=== PATIENT | female | born 1990 | race Caucasian/White ===

== ENCOUNTER 2018-08-18 18:16 | Observation (INO) | payer OTHER ==
[~2018-08-18] VITALS: Ht 170.2 cm; Wt 51.9 kg
[~2018-08-18 18:16] MED LIST: ACETAMINOPHEN-1 EAC1 PO; CALCIUM500 M1 PO; CAVAN-FOLATE D1 EACH PO; IRON SUPPLEMENT PO; IRON27 MG PO; LIBRAX CAPSULE1 EACH PO; NORCO 5-325 TA1 EACH PO; VITAMIN D5000 UNIT PO; ZOFRAN ODT4 MG SL
[2018-08-18] MEDS ORDERED: ZOFRAN4 MG PO (18:35)
[2018-08-18] MEDS ORDERED: OMEPRAZOLE20 MG PO (18:35)
[2018-08-18] MEDS ORDERED: TRAZODONE HCL50 MG PO (18:36)
[2018-08-18] MEDS ORDERED: CELEXA40 MG PO (18:36)
[2018-08-18] MEDS ORDERED: MINIPRESS1 MG PO (18:36)
[2018-08-18] MEDS ORDERED: SEROQUEL25 MG PO (18:37)
--- NOTE | 2018-08-18 21:18 | NUR ---
ADMIT THIS 27 YR OLD FEMALE TO CCU PER STRETCHER. IS ALERT AND ORIENTED, COOPERATIVE AN PLEASANT. DENIES WANTING TO HARM SELF AT THIS TIME. STATES HAS BEEN FEELING VERY SAD LATELY AND IS TIRED. HX OF PTSD AND AXIETY. AMB TO BR ON ADMIT TO VOID AND TRAVIS WELL. DENIES NAUSEA AT THIS TIME AND STATES IS HUNGRY, GIVEN BROTH AND TRAVIS WELL.
--- NOTE | 2018-08-18 22:09 | EKG ---
[facility] [address] [facility] [place] [address] Signed Undetermined rhythm Nonspecific T wave abnormality Prolonged QT Abnormal ECG No previous ECGs available Confirmed by AMILCAR DISLA MD ([id number]) on 08/18/2018 10:09:05 PM Electronically Signed By: AMILCAR DISLA MD 08/18/18 2209 PATIENT NAME: ERI LLAMAS Electrocardiogram DATE OF : 86 PHYSICIAN: AMILCAR DISLA MD REPORT #: [id number] REPORT IS CONFIDENTIAL AND NOT TO BE RELEASED WITHOUT AUTHORIZATION
--- NOTE | 2018-08-18 23:20 | NUR ---
FELL ASLEEP AFTER DRINKING MORE BROTH. SISTER WAS HERE TO SEE PT BUT SHE DID NOT AWAKEN HER.
--- NOTE | 2018-08-19 00:13 | NUR ---
AWAKENS EASILY. STATES JUST FEELS TIRED. DENIES NEED TO URINATE.
--- NOTE | 2018-08-19 01:45 | NUR ---
CONT TO SLEEP, NO CHANGES.
--- NOTE | 2018-08-19 03:30 | NUR ---
CONT TO SLEEP. NO CHANGE.
--- NOTE | 2018-08-19 04:17 | NUR ---
AWAKE, USED CALL LIGHT, NEEDING TO VOID. AMB TO BR AND TRAVIS WELL. STATES IS JUST VERY TIRED. GIVEN WARM BLANKET. READY TO GO BACK TO SLEEP.
--- NOTE | 2018-08-19 06:15 | NUR ---
CONT TO SLEEP, NO CHANGE, REMAINS SR.
--- NOTE | 2018-08-19 07:30 | NUR ---
REPORT RECIEVED. PATIENT IS LAYING ON LEFT SIDE ASLEEP. NO DISTRESS NOTED.
--- NOTE | 2018-08-19 08:00 | NUR ---
sleeping on right side. RESP EVEN AND NON-LABORED. REMAINS ON MONITOR. CALL LIGHT WITHIN REACH
--- NOTE | 2018-08-19 08:30 | NUR ---
AWAKE ASSESSMENT DONE. DENIES FEELING SELF HARM. UP TO BR TO VOID. C/O FEELING ALITTLE LIGHT HEADED WITH AMBULATION TO BR. C/O SLIGHT ARELLANO. TALKED WITH PATIENT ABOUT PLAN OF CARE FOR DAY. IS UNDERSTANDING.
--- NOTE | 2018-08-19 08:45 | NUR ---
[facility] PHONED BY THIS RN AND AWARE OF CONSULT.
--- NOTE | 2018-08-19 09:00 | NUR ---
AWAKE IN BED. DENEIS PROBLEMS. IN W/O REQUESTS.
--- NOTE | 2018-08-19 09:25 | NUR ---
SITTING UP IN BED FOR BREAKFAST.
--- NOTE | 2018-08-19 09:40 | NUR ---
C/O NAUSEA. ZOFRAN 4 MG IV GIVEN.
--- NOTE | 2018-08-19 09:45 | NUR ---
SHIKHA JIMENEZ HELD AT THIS TIME. IVF PATENT.
--- NOTE | 2018-08-19 10:00 | NUR ---
POSION CONTROL PHONED IN AND WAS UPDATEDE ON PATIENT. NO FUTHER RECOMMENDATIONS FOR THEM.
--- NOTE | 2018-08-19 12:00 | NUR ---
[facility] HERE TO SEE PATIENT.
--- NOTE | 2018-08-19 12:20 | NUR ---
PT RESTING, CCU STAFF INFORMED ME THAT THEY ARE WAITING FOR [facility] STAFF TO COME AND ASSESS PT. WILL WAIT TO VISIT.
--- NOTE | 2018-08-19 13:30 | NUR ---
RESTFUL, DENIES PROBLEMS. DENIES FEELING OF SELF HARM. [facility] EYE CONTACT. TALKATIVE. ANSWEREING QUESTIONS WITHOUT DELAY
--- NOTE | 2018-08-19 13:52 | NUR ---
TOOK LUNCH FAIR. RAVI NAUSEA.
--- NOTE | 2018-08-19 15:45 | NUR ---
MED REC COMPLETE
--- NOTE | 2018-08-19 16:23 | NUR ---
DISCHARGE INSTRUCTIONS GIVEN WITH PATIENT UNDERSTANDING. AWAITING PATIENTS MOTHER FOR RIDE HOME.
--- NOTE | 2018-08-19 16:36 | NUR ---
DISCHARGED TO HOME VIA W/C ACCOMP BY RN AND MOTHER.
== END 2018-08-19 16:30 | disposition home or self-care (01) ==
LOC: ED 18:16 → CCU 18:18
PROVIDERS: ADMIT Internal Medicine
DX: T43.212A Poisoning by selective serotonin and norepinephrine reuptake inhibitors, intentional self-harm, initial encounter (principal); T43.592A Poisoning by other antipsychotics and neuroleptics, intentional self-harm, initial encounter; T44.6X2A Poisoning by alpha-adrenoreceptor antagonists, intentional self-harm, initial encounter; T43.222A Poisoning by selective serotonin reuptake inhibitors, intentional self-harm, initial encounter; F43.10 Post-traumatic stress disorder, unspecified; F17.200 Nicotine dependence, unspecified, uncomplicated; Z79.899 Other long term (current) drug therapy; Z91.040 Latex allergy status; Z91.5 Personal history of self-harm
CPT/HCPCS: 36415; 51701; 80048; 80053; 80176; 81001; 83735; 84443; 84703; 85025; 93005; 93010; 96366; 96375; 99285-25; 99406; C9113; G0378; G0480; J2405; J2765; J3411; J3480; J7030

== ENCOUNTER 2019-12-14 16:10 | Emergency (ER) | payer OTHER ==
[~2019-12-14] VITALS: Ht 172.7 cm; Wt 54.4 kg
--- OUTSIDE RECORDS SUMMARY | ~2019-12-14 | XMS | Clinical Summary ---
Demographics + + + | Address | NEED ADDRESS | | | [place] [address] | + + + | Home Phone | | + + + | Preferred Language | Unknown | + + + | Marital Status | Single | + + + | Latter-Day Affiliation | Unknown | + + + | Race | Unknown | + + + | Ethnic Group | Unknown | + + + Author + + + | Author | [facility] | | | and [place] | + + + | Organization | [facility] | | | and [...] Team Providers + +------+ + | Care Water Proofer Name | Role | Phone | + [...] +---------+--------+ | [place]ICA[place] | MEDICA | [id number] | | [phone] | | Medica | [...] ADDRESS | | | al/Fam | | 1991 | [phone] | [place] [address] | | | [place] | | | 3 (Home) | | + +--------+ +--------+ + + Advance Directives + + + + + | Type | Date Recorded | Patient | Explanation | | | | Jewel Lathe Operator | | + + + + + | Power of | | | | | Plastic Cnc Machine Operator | | | | + + + + + | Advance | | | | | Directive | | | | + + + + +
--- OUTSIDE RECORDS SUMMARY | ~2019-12-14 | XMS | Encounter Summary ---
Demographics + + + | Address | NEED ADDRESS | | | [place] [address] | + + + | Home Phone | | + + + | Preferred Language | Unknown | + + + | Marital Status | Single | + + + | Adventism Affiliation | Unknown | + + + | Race | Unknown | + + + | Ethnic Group | Unknown | + + + Author + + + | Author | [facility] | | | and [place] | + + + | Organization | [facility] | | | [...] Team Providers + +------+ + | Care Rotating Equipment Engineer Name | Role | Phone | + [...] + + | 02/03/ | Emergency | [facility] | Gricel Godoy, | Sprain of right | | 2019 - | | EM[facility] | MD Romero FULTON | ankle, unspecified | | | | [address] | [place] [address] | ligament, initial | | 02/04/ | | [place], [place] | | encounter (Primary | | 2019 | | [phone] | (Fax) | Dx) | | | [...] be sent through Care Everywhere.Ankle Sprains, Treating (Bahamian)documented in this encounter Medications at Time of [...] Pt left Emergency Department with 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 Follow up with PMD emphasized. Taurus Hurley TBolantTaurus duran RN - 02/03/2019 11:19 PM PDTX-rays done. olanTaurus roe RN - 02/03/2019 11:02 PM PD TPO med administered as ordered. Pending x-ray. Gricel Garvin MD - 02/03/2019 10:55 PM PDTFormatting of this note might be different from t he original. [facility] Patient Name: Tereza Bhandari Patient's (home) Visit [...] HISTORY: Ankle pain. Swelling. COMPARISON: None. FINDINGS: [place] Structures: Normal. No fractures. Joints: Normal. [...] tablet 1 tablet (1 tablet Oral Given 02/03/196) Procedures: Procedure: Splint Application A right walking boot was applied by technicians and trades workers. The patient was neurovascularly intact after the application and there was good anatomic po sition. The patient was given instructions for home care and crutches were provided for ambulatory support Consultations/Reevaluations: Medical Decision Making as of Feb 04 43 Tue Feb 03, 2019 233 Imaging: XR ankle and foot - no [...] boot and given crutches. Discussed case with fire control system installer podiatry Dr. Zarco who agreed with discharge [...] 7 days.Disp-20 tablet, R-0, Print Follow-up Care: [facility] [address] [address] Schedule an appointment as soon [...] effort is made to edit the content, finishing area operator and typing errors may occur. Gricel Godoy MD 02/04/19 0051 olante, Taurus Hicks RN - 02/03/2019 10:41 PM PDTMD evaluating pt. andra Michael RN - 02/03/2019 10:16 PM PDT22:16 ED [...]
--- OUTSIDE RECORDS SUMMARY | ~2019-12-14 | XMS | Encounter Summary ---
Demographics + + + | Address | NEED ADDRESS | | | [place] [address] | + + + | Home Phone | | + + + | Preferred Language | Unknown | + + + | Marital Status | Single | + + + | Rastafari Affiliation | Unknown | + + + | Race | Unknown | + + + | Ethnic Group | Unknown | + + + Author + + + | Author | [facility] | | | and [place] | + + + | Organization | [facility] | | | and [...] Team Providers + +------+ + | Care Cashier Or Checker Stock Clerk Name | Role | Phone | + +------+ + PCP | Unavailable | + +------+ + Encounter Details +--------+ + + + + | Date | Type | Department | Care Team | Description | +--------+ + + + + | 10/25/ | Hospital | [facility] | Kit [place] | Early Onset of | | 2007 - | Encounter | MEDICAL [facility]ENTER LABOR | [address] | Delivery, | | | | AND DEL[address] | [address] | Unspecified as to | | 10/28/ | | RAJESH [place] | [place] [address] | Episode of Care | | 2007 | | [place], [place] | [phone] | | | | | [address] | | | | | | [phone] | | | +--------+ + + + [...] + + documented as of this encounter Plan of Treatment Not on filedocumented as of this encounter Visit Diagnoses + + | Diagnosis | + + | Early onset of delivery, unspecified as to episode of care | + + documented in this encounter"
[~2019-12-14 16:10] MED LIST changes: +CELEXA40 MG PO; +MINIPRESS1 MG PO; +OMEPRAZOLE20 MG PO; +SEROQUEL25 MG PO; +TRAZODONE HCL50 MG PO; +ZOFRAN4 MG PO
== END 2019-12-14 19:12 | disposition left against medical advice (07) ==
LOC: ED 16:10
DX: Z53.21 Procedure and treatment not carried out due to patient leaving prior to being seen by health care provider (principal)

== ENCOUNTER 2020-02-17 15:38 | Emergency (ER) | payer OTHER ==
[~2020-02-17] VITALS: Ht 172.7 cm; Wt 54.4 kg
--- OUTSIDE RECORDS SUMMARY | ~2020-02-17 | XMS | Clinical Summary ---
Demographics + + + | Address | NEED ADDRESS | | | [place] [address] | + + + | Home Phone | | + + + | Preferred Language | Unknown | + + + | Marital Status | Single | + + + | Denominational Affiliation | Unknown | + + + | Race | White | + + + | Ethnic Group | Not or | + + + Author + + + | Author | [facility] | | | and [place] | + + + | Organization | [facility] | | | and [place] | + + + | Address | Unknown | + + + | Phone | Unavailable | + + + Support + + +---------+ + | Name | Relationship | Address | Phone | + + +---------+ + | Mally Bhnadari | ECON | Unknown | | + + +---------+ + Care Team Providers + +------+ + | Care Bakery Machine Mechanic Supervisor Name | Role | Phone | + +------+ + | No, Physician | PCP | Unavailable | + +------+ + Allergies No Known Allergies Medications + + + +---------+------+------+-------+ | Medication | Sig | Dispensed | Refills | Star | End | Statu | | | | | | t | Date | s | | | | | | Date | | | + + + +---------+------+------+-------+ | traZODone | Take 50 mg by mouth | | 0 | | | Activ | | (DESYREL) 50 mg | nightly. | | | | | e | | tablet | | | | | | | + + + +---------+------+------+-------+ | prazosin | Take 2 mg by mouth | | 0 | | | Activ | | (MINIPRESS) 2 MG | nightly. | | | | | e | | capsule | | | | | | | + + + +---------+------+------+-------+ | citalopram | Take 40 mg by mouth | | 0 | | | Activ | | (CELEXA) 40 mg | Daily. | | | | | e | | tablet | | | | | | | + + + +---------+------+------+-------+ Active Problems No known active problems Social History + +-------+ +--------+------+ | Tobacco Use | Types | Packs/Day | Years | Date | | | | | Used | | + +-------+ +--------+------+ | Never Assessed | | | | | + +-------+ +--------+------+ + + + | Sex Assigned at | Date Recorded | | | | + + + | Not on file | | + + + Last Filed Vital Signs + + + + + | Vital Sign | Reading | Time Taken | Comments | + + + + + | Blood Pressure | 102/69 | 02/04/2019 12:00 AM | | | | | PDT | | + + + + + | Pulse | 88 | 02/04/2019 12:00 AM | | | | | PDT | | + + + + + | Temperature | 36.8 C (98.2 F) | 02/03/2019 10:12 PM | | | | | PDT | | + + + + + | Respiratory Rate | 16 | 02/04/2019 12:00 AM | | | | | PDT | | + + + + + | Oxygen Saturation | 97% | 02/04/2019 12:00 AM | | | | | PDT | | + + + + + | Inhaled Oxygen | - | - | | | Concentration | | | | + + + + + | Weight | 54.4 kg (120 lb) | 02/03/2019 10:12 PM | | | | | PDT | | + + + + + | Height | 170.2 cm (5' 7") | 02/03/2019 10:12 PM | | | | | PDT | | + + + + + | Body Mass Index | 18.79 | 02/03/2019 10:12 PM | | | | | PDT | | + + + + + Plan of Treatment + + + + + | Health Maintenance | Due Date | Last | Comments | | | | Done | | + + + + + | Hepatitis C | | | | | Screening | 9 | | | + + + + + | Cervical Cancer | | | | | Screening (Pap) | 9 | | | + + + + + | Vaccine: Influenza | | 03/19/20 | | | (#1) | 0 | 12 | | + + + + + | Vaccine: | | 06/26/19 | | | Dtap/Tdap/Td (2 - | 9 | 19 | | | Td) | | | | + + + + + Results Not on filefrom Last 3 Months Insurance + +--------+ +--------+ +---------+--------+ | Payer | Benefi | Subscriber | Effect | Phone | Address | Type | | | t Plan | ID | karen | | | | | | / | | Dates | | | | | | Group | | | | | | + +--------+ +--------+ +---------+--------+ | [place] | MEDICA | [id number] | | [phone] | | [place] | | | [place] | | 019-Pr | 2 | | id | | | PLUS | | esent | | | | + +--------+ +--------+ +---------+--------+ + +--------+ +--------+ + + | Guarantor Name | Accoun | Relation to | Date | Phone | Billing Address | | | t Type | Patient | of | | | | | | | | | | + +--------+ +--------+ + + | Tereza Bhandari | Person | Self [birth year] | NEED ADDRESS | | | al/Fam | | 1990 | | [place] [address] | | | [place] | | | 3 (Home) | | + +--------+ +--------+ + + | Tereza Bhandari | Person | Self [birth year] | NEED ADDRESS | | | al/Fam | | 1990 | [address] | [place] [address] | | | [place] | | | 3 (Home) | | + +--------+ +--------+ + + Advance Directives + + + + + | Type | Date Recorded | Patient | Explanation | | | | Paramedic | | + + + + + | Power of | | | | | Instrumental Teacher | | | | + + + + + | Advance | | | | | Directive | | | | + + + + +
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
--- OUTSIDE RECORDS SUMMARY | ~2020-02-17 | XMS | Encounter Summary ---
Demographics + + + | Address | NEED ADDRESS | | | [place] [address] | + + + | Home Phone | | + + + | Preferred Language | Unknown | + + + | Marital Status | Single | + + + | Jew Affiliation | Unknown | + + + | Race | White | + + + | Ethnic Group | Not or | + + + Author + + + | Author | [facility] | | | and [place] | + + + | Organization | [facility] | | | [...] Team Providers + +------+ + | Care Business Development Director Name | Role | Phone | + +------+ + PCP | Unavailable | + +------+ + Encounter Details +--------+ + + + + | Date | Type | Department | Care Team | Description | +--------+ + + + + | 10/25/ | Hospital | [facility] | Kit Glasgow | Early Onset of | | 2007 - | Encounter | [facility] | MD Javad [address] | Delivery, | | | | AND DELIVERY [address] | [address] | Unspecified as to | | 10/28/ | | [address] | [place] [address] | Episode of Care | | 2007 | | [place], [place] | [phone] | | | | | [address] | | | | | | [phone] | | | +--------+ + + + [...]
[2020-02-17] MEDS ORDERED: BACTRIM DS TAB1 EACH PO (16:06)
[2020-02-17] MEDS ORDERED: KEFLEX500 MG PO (16:06)
== END 2020-02-17 16:18 | disposition home or self-care (01) ==
LOC: ED 15:38
DX: L03.115 Cellulitis of right lower limb (principal); F17.200 Nicotine dependence, unspecified, uncomplicated; Z91.018 Allergy to other foods; Z79.899 Other long term (current) drug therapy
CPT/HCPCS: 99283

== ENCOUNTER 2020-06-22 03:40 | Emergency (ER) | payer OTHER ==
[~2020-06-22] VITALS: Ht 172.7 cm; Wt 54.4 kg
[~2020-06-22 03:40] MED LIST changes: +BACTRIM DS TAB1 EACH PO; +KEFLEX500 MG PO
== END 2020-06-22 04:13 | disposition home or self-care (01) ==
LOC: ED 03:40
DX: K08.89 Other specified disorders of teeth and supporting structures (principal); F17.200 Nicotine dependence, unspecified, uncomplicated; Z79.899 Other long term (current) drug therapy
CPT/HCPCS: 99282

== ENCOUNTER 2021-01-29 04:57 | Emergency (ER) | payer OTHER ==
[~2021-01-29] VITALS: Ht 172.7 cm; Wt 54.4 kg
--- OUTSIDE RECORDS SUMMARY | 2021-01-29 04:58 | XMS ---
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 12/14/2019 16:10 - Other Details: PATIENT LWBS. CRITERIA MET - [facility] - 2 Visits in 30 Days [facility] Case Management 02/18/2020-[facility] PHONE: [phone] Jeffrey has no Care Guidelines for this patient. Care History Medical/Surgical 02/18/2020 [facility] - PATIENT IS [facility] ELIGIBLE, \T\middot;\T\nbsp; PLEASE REFER PATIENT TO [facility] FOR NON EMERGENT MEDICAL NEEDS. \T\middot;\T\nbsp; [facility] CAN SEE PATIENTS SAME DAY FOR APTS IF PATIENT CALLS FIRST THING IN THE MORNING. [facility] MO[facility] TOTAL 5 NOTE: Visits indicate total known visits. ED/UCC VISIT TRACKING (12 MO.) 01/29/2021 04:57 [facility] [place] TYPE: Emergency COMPLAINT: - DENTAL PAIN 01/26/2021 01:47 [facility] [place] TYPE: Emergency COMPLAINT: - DENTAL PROBLEM 01/17/2021 00:48 [facility] [place] TYPE: Emergency DIAGNOSES: - Nausea - fatigue, nausea, pain - Nausea with vomiting, unspecified 06/22/2020 03:40 [facility] [place] TYPE: Emergency COMPLAINT: - TOOTH PAIN DIAGNOSES: - Other terminal worker (current) drug therapy - Nicotine dependence, unspecified, uncomplicated - Other specified disorders of teeth and supporting structures 02/17/2020 15:39 [facility] [place] TYPE: Emergency COMPLAINT: - R ANKLE PAIN NON INJ DIAGNOSES: - Nicotine dependence, unspecified, uncomplicated - Cellulitis of right lower limb - Other terminal worker (current) drug therapy - Pain in right ankle and joints of right foot - Allergy to other foods INPATIENT VISIT TRACKING (12 MO.) No inpatient visits to display in this time frame [email or web address]
[2021-01-29] MEDS ORDERED: CLINDAMYCIN HC300 MG PO (05:18)
== END 2021-01-29 05:33 | disposition home or self-care (01) ==
LOC: ED 04:57
DX: K08.89 Other specified disorders of teeth and supporting structures (principal); F17.200 Nicotine dependence, unspecified, uncomplicated
CPT/HCPCS: 99282

== ENCOUNTER 2021-06-16 19:43 | Emergency (ER) | payer OTHER ==
[~2021-06-16] VITALS: Ht 172.7 cm; Wt 54.4 kg
[~2021-06-16 19:43] MED LIST changes: +CLINDAMYCIN HC300 MG PO
[2021-06-17] MEDS ORDERED: K-TAB ER20 MEQ PO (01:11)
[2021-06-17] MEDS ORDERED: ONDANSETRON ODT8 MG PO (01:14)
--- NOTE | 2021-06-18 16:30 | EKG ---
[facility] [address] [facility] [place] [address] Signed Sinus tachycardia Otherwise normal ECG When compared with ECG of 18-AUG-2018 18:23, Previous ECG has undetermined rhythm, needs review Nonspecific T wave abnormality no longer evident in Inferior leads Nonspecific T wave abnormality no longer evident in Anterior leads QT has shortened Confirmed by JACKIE HANLEY DO ([id number]) on 06/18/2021 4:30:19 PM Electronically Signed By: JACKIE HANLEY DO 06/18/21 1630 PATIENT NAME: ERI LLAMAS Electrocardiogram DATE OF : 86 PHYSICIAN: JACKIE HANLEY DO REPORT #: [id number] REPORT IS CONFIDENTIAL AND NOT TO BE RELEASED WITHOUT AUTHORIZATION
== END 2021-06-17 01:41 | disposition home or self-care (01) ==
LOC: ED 19:43
DX: E87.6 Hypokalemia (principal); R51.9 Headache, unspecified; F15.90 Other stimulant use, unspecified, uncomplicated; Z20.822 Contact with and (suspected) exposure to COVID-19; F17.200 Nicotine dependence, unspecified, uncomplicated
CPT/HCPCS: 80053; 81001; 83690; 84703; 85025; 93005; 93010; 96374; 96375; 99285-25; A9270; J1885; J2405; J2765; J7030; U0003

== ENCOUNTER 2021-07-21 10:18 | Emergency (ER) | payer OTHER ==
[~2021-07-21] VITALS: Ht 172.7 cm; Wt 49.7 kg
[~2021-07-21 10:18] MED LIST changes: +K-TAB ER20 MEQ PO; +ONDANSETRON ODT8 MG PO
== END 2021-07-21 11:26 | disposition home or self-care (01) ==
LOC: ED 10:18
DX: S60.051A Contusion of right little finger without damage to nail, initial encounter (principal); W18.30XA Fall on same level, unspecified, initial encounter; F17.200 Nicotine dependence, unspecified, uncomplicated
CPT/HCPCS: 73140; 99283-25

== ENCOUNTER 2021-07-22 15:32 | Emergency (ER) | payer OTHER ==
[~2021-07-22] VITALS: Ht 172.7 cm; Wt 49.4 kg
--- OUTSIDE RECORDS SUMMARY | 2021-07-22 15:40 | XMS ---
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 - 2 Visits in 30 Days [facility] Case Management 02/18/2020-[facility] PHONE: [phone] Jeffrey has no Care Guidelines for this patient. Care History Medical/Surgical 02/18/2020 [facility] - PATIENT IS [facility] ELIGIBLE, \T\middot;\T\nbsp; PLEASE REFER PATIENT TO [facility] FOR NON EMERGENT MEDICAL NEEDS. \T\middot;\T\nbsp; [facility] CAN SEE PATIENTS SAME DAY FOR APTS IF PATIENT CALLS FIRST THING IN THE MORNING. [facility] TOTAL 6 NOTE: Visits indicate total known visits. ED/UCC VISIT TRACKING (12 MO.) 07/22/2021 15:33 [facility] [place] TYPE: Emergency COMPLAINT: - FACE INJURY 07/21/2021 10:19 [facility] [place] TYPE: Emergency COMPLAINT: - R HAND PINKY INJURY 06/16/2021 19:[address] [facility] [place] TYPE: Emergency COMPLAINT: - FLANK PAIN DIAGNOSES: - Other stimulant abuse, uncomplicated - Other stimulant use, unspecified, uncomplicated - Unspecified abdominal pain - Hypokalemia - Nicotine dependence, unspecified, uncomplicated - Headache, unspecified 01/29/2021 04:57 [facility] TYPE: Emergency COMPLAINT: - DENTAL PAIN DIAGNOSES: - Nicotine dependence, unspecified, uncomplicated - Other specified disorders of teeth and supporting structures 01/26/2021 01:[address] [facility] [address] [facility] [place] TYPE: Emergency COMPLAINT: - DENTAL PROBLEM 01/17/2021 00:48 [facility] [place] TYPE: Emergency DIAGNOSES: - Nausea - fatigue, nausea, pain - Nausea with vomiting, unspecified INPATIENT VISIT TRACKING (12 MO.) No inpatient visits to display in this time frame [email or web address]
== END 2021-07-22 17:56 | disposition home or self-care (01) ==
LOC: ED 15:32
DX: S01.112A Laceration without foreign body of left eyelid and periocular area, initial encounter (principal); F17.200 Nicotine dependence, unspecified, uncomplicated; Y09 Assault by unspecified means
CPT/HCPCS: 12011; 99283-25

== ENCOUNTER 2021-10-27 21:36 | Emergency (ER) | payer OTHER ==
[~2021-10-27] VITALS: Ht 172.7 cm; Wt 50.0 kg
== END 2021-10-28 02:14 | disposition home or self-care (01) ==
LOC: ED 21:36
DX: U07.1 COVID-19 (principal); F17.200 Nicotine dependence, unspecified, uncomplicated
CPT/HCPCS: 36415; 70450; 80053; 81001; 83605; 84703; 85025; 87502; 96374; 96375; 99284-25; C9803; J1200; J1885; J2765; J7030; U0003

== ENCOUNTER 2021-10-28 14:08 | Emergency (ER) | payer OTHER ==
[~2021-10-28] VITALS: Ht 172.7 cm; Wt 50.0 kg
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
== END 2021-10-28 18:12 | disposition home or self-care (01) ==
LOC: ED 14:08
DX: U07.1 COVID-19 (principal); F17.200 Nicotine dependence, unspecified, uncomplicated
CPT/HCPCS: 36415; 62270; 71045; 80053; 82945; 83605; 84157; 85025; 89051; 99284-25; A9270; J1885; J7030

== ENCOUNTER 2021-12-02 04:44 | Emergency (ER) | payer OTHER ==
[~2021-12-02] VITALS: Ht 172.7 cm; Wt 50.0 kg
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
== END 2021-12-02 05:55 | disposition home or self-care (01) ==
LOC: ED 04:44
DX: H11.32 Conjunctival hemorrhage, left eye (principal); F17.200 Nicotine dependence, unspecified, uncomplicated

== ENCOUNTER 2023-01-25 13:13 | Emergency (ER) | payer OTHER ==
[~2023-01-25] VITALS: Ht 172.7 cm; Wt 54.5 kg
--- OUTSIDE RECORDS SUMMARY | ~2023-01-25 | XMS | Continuity of Care Document ---
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 temperature_standar | | | | | d | | | + + + +---------+ | 2021-07-22 00:00 | weight_metric | 49.44 | kg | + + + +---------+ | 2021-07-22 00:00 | weight_metric | 54.43 | kg | + + + +---------+ | 2021-07-22 00:00 | weight_standard | 109 | lb | + + + +---------+ | 2021-07-22 00:00 | weight_standard | 120 | lb | + + + +---------+ | 2021-10-27 00:00 | BMI | 16.8 | kg/m2 | + + + +---------+ | 2021-10-27 00:00 | height_metric | 172.72 | cm | + + + +---------+ | 2021-10-27 00:00 | height_standard | 68 | in | + + + +---------+ | 2021-10-27 00:00 | weight_metric | 50 | kg | + + + +---------+ | 2021-10-27 00:00 | weight_standard | 110.23 | lb | + + + +---------+ | 2021-10-28 00:00 | BMI | 16.8 | kg/m2 | + + + +---------+ | 2021-10-28 00:00 | BP_diastolic | 62 | mmHg | + + + +---------+ | 2021-10-28 00:00 | BP_diastolic | 64 | mmHg | + + + +---------+ | 2021-10-28 00:00 | BP_systolic | 100 | mmHg | + + + +---------+ | 2021-10-28 00:00 | BP_systolic | 106 | mmHg | + + + +---------+ | 2021-10-28 00:00 | heart_rate | 78 | /min | + + + +---------+ | 2021-10-28 00:00 | heart_rate | 95 | /min | + + + +---------+ | 2021-10-28 00:00 | height_metric | 172.72 | cm | + + + +---------+ | 2021-10-28 00:00 | height_standard | 68 | in | + + + +---------+ | 2021-10-28 00:00 | o2_saturation | 100 | % | + + + +---------+ | 2021-10-28 00:00 | o2_saturation | 95 | % | + + + +---------+ | 2021-10-28 00:00 | respiration_rate | 15 | /min | + + + +---------+ | 2021-10-28 00:00 | respiration_rate | 16 | /min | + + + +---------+ | 2021-10-28 00:00 | temperature_metric | 37.33 | C | | | | | | + + + +---------+ | 2021-10-28 00:00 | temperature_metric | 39.22 | C | | | | | | + + + +---------+ | 2021-10-28 00:00 | | 102.6 | F | | | temperature_standar | | | | | d | | | + + + +---------+ | 2021-10-28 00:00 | | 99.2 | F | | | temperature_standar | | | | | d | | | + + + +---------+ | 2021-10-28 00:00 | weight_metric | 49.98 | kg | + + + +---------+ | 2021-10-28 00:00 | weight_standard | 110.19 | lb | + + + +---------+ | 2021-12-02 00:00 | BMI | 16.8 | kg/m2 | + + + +---------+ | 2021-12-02 00:00 | BP_diastolic | 87 | mmHg | + + + +---------+ | 2021-12-02 00:00 | BP_systolic | 108 | mmHg | + + + +---------+ | 2021-12-02 00:00 | heart_rate | 81 | /min | + + + +---------+ | 2021-12-02 00:00 | height_metric | 172.72 | cm | + + + +---------+ | 2021-12-02 00:00 | height_standard | 68 | in | + + + +---------+ | 2021-12-02 00:00 | o2_saturation | 100 | % | + + + +---------+ | 2021-12-02 00:00 | respiration_rate | 16 | /min | + + + +---------+ | 2021-12-02 00:00 | temperature_metric | 37.17 | C | | | | | | + + + +---------+ | 2021-12-02 00:00 | | 98.9 | F | | | temperature_standar | | | | | d | | | + + + +---------+ | 2021-12-02 00:00 | weight_metric | 49.98 | kg | + + + +---------+ | 2021-12-02 00:00 | weight_standard | 110.19 | lb | + + + +---------+ | 2022-06-14 00:00 | BMI | 16.8 | kg/m2 | + + + +---------+ | 2022-06-14 00:00 | BP_diastolic | 81 | mmHg | + + + +---------+ | 2022-06-14 00:00 | BP_systolic | 118 | mmHg | + + + +---------+ | 2022-06-14 00:00 | heart_rate | 93 | /min | + + + +---------+ | 2022-06-14 00:00 | height_metric | 172.72 | cm | + + + +---------+ | 2022-06-14 00:00 | height_standard | 68 | in | + + + +---------+ | 2022-06-14 00:00 | o2_saturation | 100 | % | + + + +---------+ | 2022-06-14 00:00 | respiration_rate | 18 | /min | + + + +---------+ | 2022-06-14 00:00 | temperature_metric | 36.39 | C | | | | | | + + + +---------+ | 2022-06-14 00:00 | | 97.5 | F | | | temperature_standar | | | | | d | | | + + + +---------+ | 2022-06-14 00:00 | weight_metric | 49.98 | kg | + + + +---------+ | 2022-06-14 00:00 | weight_standard | 110.19 | lb | + + + +---------+ | 2022-08-18 00:00 | BMI | 18.3 | kg/m2 | + + + +---------+ | 2022-08-18 00:00 | BP_diastolic | 87 | mmHg | + + + +---------+ | 2022-08-18 00:00 | BP_systolic | 115 | mmHg | + + + +---------+ | 2022-08-18 00:00 | heart_rate | 88 | /min | + + + +---------+ | 2022-08-18 00:00 | height_metric | 172.72 | cm | + + + +---------+ | 2022-08-18 00:00 | height_standard | 68 | in | + + + +---------+ | 2022-08-18 00:00 | o2_saturation | 100 | % | + + + +---------+ | 2022-08-18 00:00 | respiration_rate | 18 | /min | + + + +---------+ | 2022-08-18 00:00 | temperature_metric | 36.5 | C | | | | | | + + + +---------+ | 2022-08-18 00:00 | | 97.7 | F | | | temperature_standar | | | | | d | | | + + + +---------+ | 2022-08-18 00:00 | weight_metric | 54.52 | kg | + + + +---------+ | 2022-08-18 00:00 | weight_standard | 120.19 | lb | + + + +---------+ | 2022-08-18 00:00 | weight_standard | 120.2 | lb | + + + +---------+"
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
[~2023-01-25 13:13] MED LIST changes: +PREDNISONE20 MG PO
[2023-01-25 14:02] LABS: BASOPHILS 0.3 % (0-2); EOSINOPHILS 0.1 % (0-6); HEMATOCRIT 42.6 % (35.0-50.0); LYMPHOCYTES 4.7 % (24-44); MCH 29.7 (27-36); MCHC 32.8 g/dl (30-36); MCV 90.4 fl (81-99); MONOCYTES 8.2 % (0-12); NEUTROPHILS 86.7 % (39-80); PLATELET COUNT 153 K/uL (140-440); RBC 4.71 M/ul (4.3-5.7); RDW 14.2 (10.5-15.0)
[2023-01-25 14:11] LABS: BUN/CREATININE RATIO 6.81 (6.0-28.6); CALCIUM 8.9 mg/dL (8.5-10.1); CREATININE, SERUM 0.88 mg/dL (0.55-1.02)
[2023-01-25 14:45] LABS: INFLUENZA B NAA NEGATIVE (NEGATIVE); RESPIRATORY SYNCYTIAL VIR NAA NEGATIVE (NEGATIVE)
[2023-01-25 15:59] VITALS: BP 130/88
== END 2023-01-25 16:00 | disposition home or self-care (01) ==
LOC: ED 13:13
PROVIDERS: Student in an Organized Health Care Education/Training Program
DX: B34.9 Viral infection, unspecified (principal); F17.200 Nicotine dependence, unspecified, uncomplicated; Z20.822 Contact with and (suspected) exposure to COVID-19; Z91.040 Latex allergy status
CPT/HCPCS: 36415; 80048; 84703; 85025; 87502; 96374; 99284-25; C9803; J1885; J7030; U0002

== ENCOUNTER 2024-01-16 08:32 | Emergency (ER) | payer OTHER ==
[~2024-01-16] VITALS: Ht 172.7 cm; Wt 55.8 kg
[~2024-01-16 08:32] MED LIST changes: +IMITREX25 MG PO
[2024-01-16] MEDS ORDERED: PSEUDOEPHEDRINE HCL 30 MG TAB PO ONE (09:00)
[2024-01-16] MEDS ORDERED: ONDANSETRON 4 MG TAB ODT SL ONE (09:00)
[2024-01-16] MEDS ORDERED: KETOROLAC TROMETHAMINE 30 MG/ML VIAL IM ONE (09:00)
[2024-01-16 09:41] LABS: INFLUENZA B NAA NEGATIVE (NEGATIVE); RESPIRATORY SYNCYTIAL VIR NAA NEGATIVE (NEGATIVE)
[2024-01-16] MEDS ORDERED: ONDANSETRON ODT4 MG PO (09:51)
[2024-01-16] MEDS ORDERED: NASAL DECONGEST30 MG PO (09:51)
[2024-01-16 09:56] VITALS: BP 127/97
[2024-01-17] MEDS ORDERED: ONDANSETRON ODT8 MG PO (02:59)
[2024-01-17] MEDS ORDERED: CEFDINIR300 MG PO (02:59)
[2024-01-17] MEDS ORDERED: HYDROCODON-ACE1 EA10 PO (02:59)
== END 2024-01-16 09:56 | disposition home or self-care (01) ==
LOC: ED 08:32
PROVIDERS: Emergency Medicine
DX: J06.9 Acute upper respiratory infection, unspecified (principal); F17.200 Nicotine dependence, unspecified, uncomplicated; Z91.040 Latex allergy status
CPT/HCPCS: 87502; 96372; 99284-25; A9270; J1885; U0002

== ENCOUNTER 2024-01-17 00:46 | Emergency (ER) | payer OTHER ==
[~2024-01-17] VITALS: Ht 172.7 cm; Wt 57.0 kg
[~2024-01-17 00:46] MED LIST changes: +NASAL DECONGEST30 MG PO; +ONDANSETRON ODT4 MG PO
[2024-01-17 01:07] LABS: BILIRUBIN, URINE POSITIVE (negative); BLOOD/HGB, URINE LARGE (Negative); KETONE, URINE TRACE (Negative); LEUK ESTERASE, URINE NEGATIVE (negative); NITRITE, URINE POSITIVE (negative)
[2024-01-17 01:12] LABS: EPITHELIAL CELLS, URINE SQUAMOUS 4+ /lpf (0-1+)
[2024-01-17 01:13] LABS: BACTERIA, URINE 3+ /hpf (negative); CASTS, URINE NONE SEEN \\lpf; COLLECTION TYPE, URINE CLEAN CATCH; CRYSTALS, URINE NONE SEEN (0-1+); REFLEX CULTURE, URINE No (No)
[2024-01-17] MEDS ORDERED: MORPHINE SULFATE 4 MG/ML VIAL IV ONE (01:15)
[2024-01-17] MEDS ORDERED: ondansetron HCL 4 MG/2 ML VIAL IV ONE (01:15)
[2024-01-17] MEDS ORDERED: SODIUM CHLORIDE 0.9% 1,000 ML IV ONE (01:15)
[2024-01-17 01:19] LABS: BASOPHILS 0.2 % (0-2); EOSINOPHILS 0.2 % (0-6); LYMPHOCYTES 11.7 % (24-44); MCH 30.2 (27-36); MCHC 33.4 g/dl (30-36); MCV 90.2 fl (81-99); MONOCYTES 11.7 % (0-12); NEUTROPHILS 76.2 % (39-80); PLATELET COUNT 188 K/uL (140-440); RBC 4.32 M/ul (4.3-5.7); RDW 14.1 (10.5-15.0)
[2024-01-17] MEDS ORDERED: CEFTRIAXONE/SODIUM CHLORIDE 2 GM/100 ML PIGGYBACK IV ONE (01:30)
[2024-01-17 01:33] LABS: ALBUMIN 3.3 g/dL (3.4-5.0); ALBUMIN/GLOBULIN RATIO 0.89 (1.1-2.4); ANION GAP 7.5 (7-21); BILIRUBIN, TOTAL 0.4 ng/dL (0.2-1.0); BUN/CREATININE RATIO 11.11 (6.0-28.6); CALCIUM 8.8 mg/dL (8.5-10.1); CREATININE, SERUM 0.99 mg/dL (0.55-1.02); POTASSIUM 3.5 mmol/L (3.5-5.1)
[2024-01-17] MEDS ORDERED: HYDROmorphone HCL 1 MG/ML SYR IV PRN (02:30)
[2024-01-17] MEDS ORDERED: ONDANSETRON ODT8 MG PO (02:59)
[2024-01-17] MEDS ORDERED: HYDROCODON-ACE1 EA10 PO (02:59)
[2024-01-17] MEDS ORDERED: CEFDINIR300 MG PO (02:59)
[2024-01-17] MEDS ORDERED: HYDROCODONE BIT/ACETAMINOPHEN 5/325 MG 1 TAB HOME.PACK PO ONE (03:15)
[2024-01-17] MEDS ORDERED: CEFDINIR 300 MG HOME.PACK PO ONE (03:15)
[2024-01-17] MEDS ORDERED: ONDANSETRON 4 MG HOME.PACK SL ONE (03:15)
[2024-01-17] MEDS ORDERED: NALOXONE 4 MG NASAL SPRAY #2 HOME.PACK NAS ONE (03:15)
[2024-01-17 03:28] VITALS: BP 126/83
== END 2024-01-17 03:31 | disposition home or self-care (01) ==
LOC: ED 00:46
PROVIDERS: Family Medicine
DX: N12 Tubulo-interstitial nephritis, not specified as acute or chronic (principal); F17.200 Nicotine dependence, unspecified, uncomplicated; Z91.040 Latex allergy status; Z79.899 Other long term (current) drug therapy
CPT/HCPCS: 36415; 74177; 80053; 81001; 83690; 84703; 85025; 99284-25; A9270; J0696; J1170; J2270; J2405; J3490; J7030; Q9967

== ENCOUNTER 2024-04-22 20:44 | Emergency (ER) | payer OTHER ==
[~2024-04-22] VITALS: Ht 172.7 cm; Wt 56.2 kg
[~2024-04-22 20:44] MED LIST changes: +CEFDINIR300 MG PO; +HYDROCODON-ACE1 EA10 PO
[2024-04-22] MEDS ORDERED: IBUPROFEN 800 MG TAB PO ONE (21:00)
[2024-04-22] MEDS ORDERED: IBU600 MG PO (21:43)
[2024-04-22 21:50] VITALS: BP 120/91
== END 2024-04-22 21:52 | disposition home or self-care (01) ==
LOC: ED 20:44
DX: S93.401A Sprain of unspecified ligament of right ankle, initial encounter (principal); I25.2 Old myocardial infarction; F17.200 Nicotine dependence, unspecified, uncomplicated; Z91.040 Latex allergy status; X58.XXXA Exposure to other specified factors, initial encounter
CPT/HCPCS: 73610; A9270

== ENCOUNTER 2024-05-05 18:22 | Emergency (ER) | payer OTHER ==
[~2024-05-05] VITALS: Ht 172.7 cm; Wt 57.8 kg
[~2024-05-05 18:22] MED LIST changes: +IBU600 MG PO
[2024-05-05] MEDS ORDERED: ACETAMINOPHEN 500 MG TAB PO ONE (18:45)
[2024-05-05] MEDS ORDERED: SODIUM CHLORIDE 0.9% 2,000 ML IV ONE (19:00)
[2024-05-05 19:01] LABS: BASOPHILS 0.1 % (0-2); BILIRUBIN, URINE NEGATIVE (negative); BLOOD/HGB, URINE LARGE (Negative); EOSINOPHILS 0.1 % (0-6); HEMOGLOBIN 13.7 g/dL (12.0-18.0); KETONE, URINE NEGATIVE (Negative); LEUK ESTERASE, URINE SMALL (negative); LYMPHOCYTES 5.6 % (24-44); MCH 30.1 (27-36); MCHC 33.3 g/dl (30-36); MCV 90.3 fl (81-99); MONOCYTES 8.7 % (0-12); NEUTROPHILS 85.5 % (39-80); NITRITE, URINE POSITIVE (negative); PLATELET COUNT 278 K/uL (140-440); RBC 4.54 M/ul (4.3-5.7); RDW 14.5 (10.5-15.0)
[2024-05-05 19:07] LABS: BACTERIA, URINE 4+ /hpf (negative); EPITHELIAL CELLS, URINE SQUAMOUS 2+ /lpf (0-1+); RED BLOOD CELLS, URINE >50 /hpf (0-5); REFLEX CULTURE, URINE Yes (No); WHITE BLOOD CELLS, URINE >50 /HPF (0-5)
[2024-05-05] MEDS ORDERED: ondansetron HCL 4 MG/2 ML VIAL IV ONE (19:15)
[2024-05-05 19:34] LABS: ALBUMIN 3.5 g/dL (3.4-5.0); ALBUMIN/GLOBULIN RATIO 0.78 (1.1-2.4); ANION GAP 12.2 (7-21); BILIRUBIN, TOTAL 0.4 ng/dL (0.2-1.0); BUN/CREATININE RATIO 12.34 (6.0-28.6); CALCIUM 9.3 mg/dL (8.5-10.1); CREATININE, SERUM 0.81 mg/dL (0.55-1.02); POTASSIUM 3.2 mmol/L (3.5-5.1)
[2024-05-05 19:46] LABS: INFLUENZA B NAA NEGATIVE (NEGATIVE); RESPIRATORY SYNCYTIAL VIR NAA NEGATIVE (NEGATIVE)
[2024-05-05] MEDS ORDERED: CEFDINIR 300 MG HOME.PACK PO ONE (20:00)
[2024-05-05] MEDS ORDERED: HYDROCODONE BIT/ACETAMINOPHEN 5/325 MG 1 TAB HOME.PACK PO ONE (20:00)
[2024-05-05] MEDS ORDERED: ONDANSETRON 4 MG HOME.PACK SL ONE (20:00)
[2024-05-05] MEDS ORDERED: CEFTRIAXONE/SODIUM CHLORIDE 2 GM/100 ML PIGGYBACK IV ONE (20:00)
[2024-05-05 21:10] VITALS: BP 112/72
--- NOTE | 2024-05-07 13:58 | EKG ---
[facility] [address] [place] [address] Signed Normal sinus rhythm Normal ECG When compared with ECG of 14-JUN-2022 13:09, No significant change was found Confirmed by Maria L Velazquez MD () on 05/07/2024 1:58:04 PM Electronically Signed By: MARIA L VELAZQUEZ MD 05/07/24 1358 PATIENT NAME: ERI LLAMAS Electrocardiogram DATE OF : 86 PHYSICIAN: MARIA L VELAZQUEZ MD REPORT #: [id number] REPORT IS CONFIDENTIAL AND NOT TO BE RELEASED WITHOUT AUTHORIZATION
== END 2024-05-05 21:10 | disposition home or self-care (01) ==
LOC: ED 18:22
PROVIDERS: Emergency Medicine
DX: N12 Tubulo-interstitial nephritis, not specified as acute or chronic (principal); I25.2 Old myocardial infarction; F17.200 Nicotine dependence, unspecified, uncomplicated; Z91.040 Latex allergy status
CPT/HCPCS: 36415; 71045; 80053; 81001; 83605; 85025; 87040; 87088; 87186; 87502; 93005; 93010; 96365; 96375; 99284-25; A9270; J0696; J2405; J7030; U0002

== ENCOUNTER 2024-06-13 22:19 | Emergency (ER) | payer OTHER ==
[~2024-06-13] VITALS: Ht 172.7 cm; Wt 57.2 kg
[2024-06-13 23:45] LABS: BILIRUBIN, URINE NEGATIVE (negative); BLOOD/HGB, URINE NEGATIVE (Negative); KETONE, URINE NEGATIVE (Negative); LEUK ESTERASE, URINE MODERATE (negative); NITRITE, URINE POSITIVE (negative); PH, URINE 7.5 (5-7)
[2024-06-13] MEDS ORDERED: SODIUM CHLORIDE 0.9% 1,000 ML IV SCH (23:45)
[2024-06-13] MEDS ORDERED: ondansetron HCL 4 MG/2 ML VIAL IV ONE (23:45)
[2024-06-13 23:58] LABS: BACTERIA, URINE 2+ /hpf (negative); CASTS, URINE NONE SEEN \\lpf; CRYSTALS, URINE NONE SEEN (0-1+); EPITHELIAL CELLS, URINE SQUAMOUS 2+ /lpf (0-1+); RED BLOOD CELLS, URINE 0-1 /hpf (0-5)
[2024-06-13 23:59] LABS: COLLECTION TYPE, URINE CLEAN CATCH; REFLEX CULTURE, URINE No (No)
[2024-06-14 00:16] LABS: BASOPHILS 0.4 % (0-2); EOSINOPHILS 2.9 % (0-6); HEMATOCRIT 41.5 % (35.0-50.0); HEMOGLOBIN 14.1 g/dL (12.0-18.0); LYMPHOCYTES 24.2 % (24-44); MCH 30.4 (27-36); MCHC 33.9 g/dl (30-36); MCV 89.6 fl (81-99); MONOCYTES 9.6 % (0-12); NEUTROPHILS 62.9 % (39-80); PLATELET COUNT 225 K/uL (140-440); RBC 4.64 M/ul (4.3-5.7); RDW 14.5 (10.5-15.0)
[2024-06-14] MEDS ORDERED: ONDANSETRON 4 MG TAB ODT SL ONE (00:30)
[2024-06-14 00:31] LABS: ALBUMIN 3.4 g/dL (3.4-5.0); ALBUMIN/GLOBULIN RATIO 0.92 (1.1-2.4); ANION GAP 8.3 (7-21); BILIRUBIN, TOTAL 0.2 ng/dL (0.2-1.0); BUN/CREATININE RATIO 11.9 (6.0-28.6); CALCIUM 9.1 mg/dL (8.5-10.1); CREATININE, SERUM 0.84 mg/dL (0.55-1.02); POTASSIUM 3.3 mmol/L (3.5-5.1); PROTEIN, TOTAL 7.1 g/dL (6.4-8.2)
[2024-06-14] MEDS ORDERED: CEPHALEXIN500 M1 PO (00:49)
[2024-06-14] MEDS ORDERED: ONDANSETRON ODT8 MG PO (00:50)
[2024-06-14] MEDS ORDERED: ONDANSETRON 4 MG HOME.PACK SL ONE (01:00)
[2024-06-14] MEDS ORDERED: CEPHALEXIN MONOHYDRATE 500 MG HOME.PACK PO ONE (01:00)
[2024-06-14 01:15] VITALS: BP 116/80
== END 2024-06-14 01:15 | disposition home or self-care (01) ==
LOC: ED 22:19
PROVIDERS: Emergency Medicine
DX: N39.0 Urinary tract infection, site not specified (principal); I25.2 Old myocardial infarction; F17.200 Nicotine dependence, unspecified, uncomplicated; Z91.040 Latex allergy status; Z79.899 Other long term (current) drug therapy
CPT/HCPCS: 36415; 80053; 81001; 83690; 84703; 85025; 99284; A9270

== ENCOUNTER 2024-08-07 13:06 | Emergency (ER) | payer OTHER ==
[~2024-08-07] VITALS: Ht 172.7 cm; Wt 56.2 kg
[~2024-08-07 13:06] MED LIST changes: +CEPHALEXIN500 M1 PO
[2024-08-07] MEDS ORDERED: DIPHTH,PERTUSS(ACELL),TET VAC 0.5 ML SYRINGE IM ONE (14:00)
[2024-08-07] MEDS ORDERED: LIDOCAINE 1% W/ EPI 1:100,000 20 ML MDV SUB-Q ONE (14:00)
[2024-08-07 15:05] VITALS: BP 102/72
== END 2024-08-07 15:06 | disposition home or self-care (01) ==
LOC: ED 13:06
DX: S61.411A Laceration without foreign body of right hand, initial encounter (principal); W45.8XXA Other foreign body or object entering through skin, initial encounter; F17.200 Nicotine dependence, unspecified, uncomplicated; Z23 Encounter for immunization; Z91.040 Latex allergy status; Z79.899 Other long term (current) drug therapy
CPT/HCPCS: 73130; 90471; 90715; 99283-25

== ENCOUNTER 2024-08-14 08:13 | Emergency (ER) | payer OTHER ==
[~2024-08-14] VITALS: Ht 172.7 cm; Wt 58.5 kg
[2024-08-14 08:38] VITALS: BP 137/95
== END 2024-08-14 08:35 | disposition home or self-care (01) ==
LOC: ED 08:13
DX: S61.411A Laceration without foreign body of right hand, initial encounter (principal); X58.XXXA Exposure to other specified factors, initial encounter; I25.2 Old myocardial infarction; F17.200 Nicotine dependence, unspecified, uncomplicated; Z91.040 Latex allergy status; Z79.899 Other long term (current) drug therapy
CPT/HCPCS: 99282

== ENCOUNTER 2024-09-17 18:18 | Emergency (ER) | payer OTHER ==
[~2024-09-17] VITALS: Ht 172.7 cm; Wt 60.1 kg
[2024-09-17] MEDS ORDERED: DOXYCYCLINE HYCLATE 100 MG HOME.PACK PO ONE (20:00)
[2024-09-17] MEDS ORDERED: methylPREDNISolone 4 MG HOME.PACK PO ONE (20:00)
[2024-09-17 20:04] VITALS: BP 103/69
== END 2024-09-17 20:30 | disposition home or self-care (01) ==
LOC: ED 18:18
DX: L73.2 Hidradenitis suppurativa (principal); I25.2 Old myocardial infarction; F17.200 Nicotine dependence, unspecified, uncomplicated; Z91.040 Latex allergy status
CPT/HCPCS: 84703; 99283; A9270